=== PATIENT | male | born 1990 | race African-American/Black ===

== ENCOUNTER 2017-10-11 09:53 | Emergency (ER) | payer SELFPAY, BC ==
[2017-10-11 10:43] LABS: ADD UMIC NO; UR ASCORBIC ACID NEGATIVE (NEGATIVE); UR BILIRUBIN (Dip) NEGATIVE (NEGATIVE); UR BLOOD (Dip) NEGATIVE (NEGATIVE); UR CLARITY CLEAR (CLEAR); UR COLOR YELLOW (YELLOW); UR GLUCOSE (Dip) NEGATIVE (NEGATIVE); UR KETONES (Dip) NEGATIVE (NEGATIVE); UR LEUKOCYTE ESTERASE (Dip) NEGATIVE Leu/ul (NEGATIVE); UR NITRITE (Dip) NEGATIVE (NEGATIVE); UR SPECIFIC GRAVITY (Dip) 1.018 (1.003-1.030); UR TOTAL PROTEIN (Dip) NEGATIVE (NEGATIVE); UR UROBILINOGEN (Dip) NEGATIVE (NEGATIVE)
== END 2017-10-11 11:40 | disposition home or self-care (01) ==
LOC: FTE 09:53
DX: L30.9 Dermatitis, unspecified (principal)
CPT/HCPCS: 81003; 87591; 99283

== ENCOUNTER 2018-10-19 23:13 | Emergency (ER) | payer SELFPAY | END 2018-10-20 00:54 | disposition left against medical advice (07) | LOC: FTE 23:13 | DX: Z53.21 Procedure and treatment not carried out due to patient leaving prior to being seen by health care provider (principal) | CPT/HCPCS: 93005 ==

== ENCOUNTER 2018-10-20 12:47 | Emergency (ER) | payer SELFPAY | END 2018-10-20 14:50 | disposition home or self-care (01) | LOC: FTE 12:47 | DX: R07.89 Other chest pain (principal) | CPT/HCPCS: 71046; 93005; 99283-25 ==

== ENCOUNTER 2019-01-17 22:15 | Emergency (ER) | payer SELFPAY | END 2019-01-17 23:41 | disposition home or self-care (01) | LOC: FTE 22:15 | DX: R05 Cough (principal) | CPT/HCPCS: 71045; 99283-25 ==